=== PATIENT | male | born 1985 | race Caucasian/White ===

== ENCOUNTER 2017-04-22 18:56 | Inpatient (IN) | payer MEDICARE, MEDICAID ==
[~2017-04-22] VITALS: Ht 182.9 cm; Wt 110.0 kg
[~2017-04-22 18:56] MED LIST: HALO100A IM
[2017-04-22] MEDS ORDERED: EMTR1TAB13 PO (19:07)
[2017-04-22] MEDS ORDERED: DOLU50TA PO (19:07)
[2017-04-22 19:17] LABS: BASOPHILS % (AUTO) 0.4 % (0.0-2.0); EOSINOPHILS % (AUTO) 1.3 % (1.0-6.0); HEMATOCRIT 41.1 % (41-53); HEMOGLOBIN 13.8 g/dL (13.5-17.5); LYMPHOCYTES % (AUTO) 23.8 % (22.0-44.0); MEAN CORPUSCULAR HEMOGLOBIN 27.8 pg (26.0-34.0); MEAN CORPUSCULAR HGB CONC 33.5 G/dL (31.0-37.0); MEAN CORPUSCULAR VOLUME 83 fL (80-100); MONOCYTES # (AUTO) 0.5 K/uL (0.1-1.0); MONOCYTES % (AUTO) 6.4 % (2.0-9.0); NEUTROPHILS # (AUTO) 5.6 K/uL (1.8-7.7); NEUTROPHILS % (AUTO) 68.1 % (40.0-70.0); PLATELET COUNT (AUTO) 278 K/uL (150-450); RED BLOOD CELL COUNT(AUTO) 4.95 MIL/uL (4.50-5.90); RED CELL DISTRIBUTION WIDTH 16.5 % (11.5-14.5); WHITE BLOOD COUNT (AUTO) 8.2 K/uL (4.5-11.0)
[2017-04-22 19:41] LABS: ANION GAP 10 mmol/L (8-16); CALCIUM, TOTAL 9.4 mg/dL (8.8-10.5); CARBON DIOXIDE 28 mmol/L (22-29); CHLORIDE 108 mmol/L (98-107); CREATININE 1.24 mg/dL (0.60-1.30); GLOMERULAR FILTR. RATE CALC > 60 mL/min (>60); POTASSIUM 4.4 mmol/L (3.5-5.1); SODIUM SERUM 146 mmol/L (136-145); UREA NITROGEN, BLOOD 9 mg/dL (7-18)
[2017-04-22 19:48] LABS: ALANINE AMINOTRANSFERASE 38 U/L (12-78); ASPARTATE AMINOTRANSFERASE 25 U/L (15-37); BILIRUBIN,TOTAL 0.5 mg/dL (0.1-1.0); TOTAL PROTEIN, SERUM 8.7 g/dL (6.4-8.2)
[2017-04-22] MEDS ORDERED: LORazepam 2 MG TABLET PO ONE (20:15)
[2017-04-22 20:44] VITALS: BP 152/90
[2017-04-22 21:56] VITALS: BP 133/85
[2017-04-23 00:12] VITALS: BP 138/88
[2017-04-23] MEDS ORDERED: PNEUMOCOCCAL VACCINE POLYVALENT 0.5 ML VIAL [PPSV23] IM ONE (01:30)
[2017-04-23 08:44] VITALS: BP 151/76
[2017-04-23] MEDS ORDERED: EMTRICITABINE/TENOFOVIR 200-300 MG TABLET PO SCH (09:00)
[2017-04-23 09:13] LABS: CHOL/HDL RATIO 5.3 (4.2-7.3)
[2017-04-23] MEDS: NICOTINE 21 MG/24 HOUR PATCH TD SCH (11:41)
[2017-04-23] MEDS: DOLUTEGRAVIR SODIUM 50 MG TABLET PO SCH (11:42)
[2017-04-23 16:50] VITALS: BP 137/85
[2017-04-23] MEDS: DESCOVY PO SCH ×2 (20:50→21:00)
[2017-04-23] MEDS: ZOLPIDEM TARTRATE 10 MG TABLET PO PRN (20:55)
[2017-04-23] MEDS ORDERED: DESCOVY PO SCH (21:00)
[2017-04-24 06:27] VITALS: BP 127/89
[2017-04-24 08:00] VITALS: BP 132/86
[2017-04-24] MEDS: VENLAFAXINE HCL 75 MG ER CAPSULE PO SCH (08:49)
[2017-04-24] MEDS: NICOTINE 21 MG/24 HOUR PATCH TD SCH (08:49)
[2017-04-24] MEDS: DOLUTEGRAVIR SODIUM 50 MG TABLET PO SCH (08:50)
[2017-04-24] MEDS: DESCOVY PO SCH (08:50)
[2017-04-24] MEDS ORDERED: NON FORMULARY MEDICATION - TABLET PO SCH (09:00)
[2017-04-24] MEDS ORDERED: HALOPERIDOL DECANOATE 100 MG/ML VIAL IM SCH (09:00)
[2017-04-24] MEDS: LORazepam 2 MG TABLET PO PRN ×2 (10:12→15:53)
[2017-04-24 16:10] VITALS: BP 133/85
[2017-04-24] MEDS: ZOLPIDEM TARTRATE 10 MG TABLET PO PRN (20:58)
[2017-04-25 01:03] VITALS: BP 137/91
[2017-04-25] MEDS: LORazepam 2 MG TABLET PO PRN ×4 (01:06→18:43)
[2017-04-25] MEDS: NICOTINE 21 MG/24 HOUR PATCH TD SCH (08:29)
[2017-04-25] MEDS: VENLAFAXINE HCL 75 MG ER CAPSULE PO SCH (08:29)
[2017-04-25] MEDS: DOLUTEGRAVIR SODIUM 50 MG TABLET PO SCH (08:29)
[2017-04-25 08:42] VITALS: BP 117/72
[2017-04-25] MEDS: HALOPERIDOL 5 MG TABLET PO PRN (13:25)
[2017-04-25 16:11] VITALS: BP 119/75
[2017-04-25] MEDS: ZOLPIDEM TARTRATE 10 MG TABLET PO PRN (21:00)
[2017-04-26 00:27] VITALS: BP 105/65
[2017-04-26 08:15] VITALS: BP 110/67
[2017-04-26] MEDS: VENLAFAXINE HCL 75 MG ER CAPSULE PO SCH (09:01)
[2017-04-26] MEDS: NICOTINE 21 MG/24 HOUR PATCH TD SCH (09:02)
[2017-04-26] MEDS: DOLUTEGRAVIR SODIUM 50 MG TABLET PO SCH (09:05)
[2017-04-26] MEDS: LORazepam 2 MG TABLET PO PRN ×2 (09:12→17:04)
[2017-04-26 16:33] VITALS: BP 129/84
[2017-04-26] MEDS: HALOPERIDOL 5 MG TABLET PO PRN (18:33)
[2017-04-26] MEDS ORDERED: VENL150C2 PO (20:51)
[2017-04-26] MEDS: ZOLPIDEM TARTRATE 10 MG TABLET PO PRN (20:55)
[2017-04-27 01:44] VITALS: BP 124/80
[2017-04-27] MEDS ORDERED: EMTR1TAB11 PO (08:06)
[2017-04-27 08:20] VITALS: BP 128/74
[2017-04-27] MEDS: NICOTINE 21 MG/24 HOUR PATCH TD SCH (08:52)
[2017-04-27] MEDS: DOLUTEGRAVIR SODIUM 50 MG TABLET PO SCH (08:53)
[2017-04-27] MEDS ORDERED: VENLAFAXINE HCL 150 MG ER CAPSULE PO SCH (09:00)
== END 2017-04-27 10:15 | disposition home or self-care (01) | DRG 885 ==
LOC: EMS 19:37 → B2X 20:15
PROVIDERS: ADMIT Psychiatry & Neurology Psychiatry; ATTEND Psychiatry & Neurology Psychiatry
DX: F33.2 Major depressive disorder, recurrent severe without psychotic features (principal); B20 Human immunodeficiency virus [HIV] disease; R45.851 Suicidal ideations; Z88.2 Allergy status to sulfonamides; E55.9 Vitamin D deficiency, unspecified; E78.1 Pure hyperglyceridemia; F12.90 Cannabis use, unspecified, uncomplicated; F15.90 Other stimulant use, unspecified, uncomplicated; F60.3 Borderline personality disorder; F19.10 Other psychoactive substance abuse, uncomplicated; I10 Essential (primary) hypertension; F17.210 Nicotine dependence, cigarettes, uncomplicated; R45.84 Anhedonia; R45.87 Impulsiveness; R79.89 Other specified abnormal findings of blood chemistry; Z91.5 Personal history of self-harm; Z72.89 Other problems related to lifestyle; Z28.21 Immunization not carried out because of patient refusal; Z88.8 Allergy status to other drugs, medicaments and biological substances
CPT/HCPCS: 87081; 90471; 99285; G0480; J1631